=== PATIENT | male | born 1975 | race Hispanic/Latino ===

== ENCOUNTER → 2022-11-25 | Outpatient (CLI) | payer OTHER ==
[~2022-11-25] MED LIST: ISOVUE-300 61% 100ML VIAL ONE; LIDOCAINE 1% MDV 20ML VIAL ONE; TRIAMCINOLONE ACETONIDE SUSP 40MG/ML 1ML VIAL ONE
== END ==
LOC: M PLAIMG 14:29 → EDUNIT# 15:00
PROVIDERS: ATTEND Physician Assistant Surgical
DX: S73.121A Ischiocapsular ligament sprain of right hip, initial encounter (principal); X58.XXXA Exposure to other specified factors, initial encounter; Y92.9 Unspecified place or not applicable
CPT/HCPCS: 20610; 76000; J3301

== ENCOUNTER → 2022-12-09 | Outpatient (CLI) | payer OTHER | LOC: M PLAIMG 12:28 | PROVIDERS: ATTEND Physician Assistant Surgical | DX: S73.122A Ischiocapsular ligament sprain of left hip, initial encounter (principal); X58.XXXA Exposure to other specified factors, initial encounter; Y92.9 Unspecified place or not applicable | CPT/HCPCS: 20610; 76000; J3301 ==